=== PATIENT | male | born 1975 | race Caucasian/White ===

== ENCOUNTER 2017-12-07 09:44 | Inpatient (IN) | payer BC ==
[~2017-12-07] VITALS: Ht 170.2 cm; Wt 100.4 kg
[~2017-12-07 09:44] MED LIST: COZAAR100 MG PO; LEVOXYL0.175 MG PO; SYNTHROID 0.0.025 MG PO; SYNTHROID0.125 MG/T PO
[2017-12-28] VITALS (12 sets, daily range): BP systolic 104–144; BP diastolic 56–97; PULSE 69–94; TEMP 98.1–98.3
[2017-12-28] MEDS ORDERED: TIROSINT125 MC1 PO (05:58)
[2017-12-28 06:39] LABS: BASO # 0.1 (0.0-0.2); EOS # 0.2 (0.0-0.7); EOS % 2.3 % (0-4.0); GRAN # 4.9 (1.4-6.5); GRAN % 60.8 % (42.2-75.2); HEMATOCRIT 43.3 % (42.0-52.0); LYMPH # 2.1 (1.2-3.4); LYMPH % 25.8 % (20.0-51.0); MEAN CELL VOLUME 91 fl (80.0-100.0); MEAN CORPUSCULAR HEMOGLOBIN 32 pg (27.0-31.0); MEAN CORPUSCULAR HGB CONC 35 g/dl (33.0-37.0); MEAN PLATELET VOLUME 11.2 fl (7.4-10.4); MONO # 0.8 (0.1-0.6); MONO % 9.7 % (1.7-9.3); PLATELET COUNT 253 K/mm3 (130-400); RED BLOOD COUNT 4.75 M/mm3 (4.20-5.60); REDCELL DISTRIBUTION WIDTH-CV 12.4 % (11.5-14.5)
[2017-12-28 06:49] LABS: ALBUMIN 4.3 gm/dL (3.5-5.0); BILIRUBIN,TOTAL 1.4 mg/dL (0.0-1.0); CALCIUM 8.4 mg/dL (8.4-10.2); CREATININE, serum 0.92 mg/dL (0.66-1.25); POTASSIUM 3.7 mmol/L (3.4-5.0); TOTAL PROTEIN 7.9 gm/dL (6.4-8.2)
[2017-12-29 04:07] VITALS: BP 139/67; PULSE 96; TEMP 98.2
[2017-12-29 07:04] LABS: HEMATOCRIT 31.7 % (42.0-52.0)
[2017-12-29 07:11] LABS: CALCIUM 7.7 mg/dL (8.4-10.2); CREATININE, serum 0.96 mg/dL (0.66-1.25); POTASSIUM 3.8 mmol/L (3.4-5.0)
[2017-12-29 07:16] VITALS: BP 132/56; PULSE 88; TEMP 98.5
[2017-12-29 12:39] VITALS: BP 138/71; PULSE 92; TEMP 97.9
[2017-12-29 16:17] VITALS: BP 124/59; PULSE 100; TEMP 97.8
[2017-12-29 20:03] VITALS: BP 120/61; PULSE 93; TEMP 98.9
[2017-12-30 00:11] VITALS: BP 109/51; PULSE 77; TEMP 98.2
[2017-12-30 03:59] VITALS: BP 119/60; PULSE 93; TEMP 98.4
[2017-12-30 06:19] LABS: HEMATOCRIT 32.9 % (42.0-52.0); HEMOGLOBIN 10.9 g/dl (13.5-18.0)
[2017-12-30 06:56] VITALS: BP 125/70; PULSE 72; TEMP 98
[2017-12-30 12:27] VITALS: BP 143/63; PULSE 73; TEMP 98.2
[2017-12-30 16:20] VITALS: BP 130/69; PULSE 77; TEMP 98.6
[2017-12-30 19:10] VITALS: BP 125/63; PULSE 85; TEMP 98.3
[2017-12-31 00:13] VITALS: BP 120/57; PULSE 78; TEMP 98.2
[2017-12-31 03:42] VITALS: BP 113/54; PULSE 78; TEMP 98.2
[2017-12-31 07:11] VITALS: BP 127/67; PULSE 73; TEMP 98.3
[2017-12-31 12:40] VITALS: BP 144/77; PULSE 86; TEMP 98.8
== END 2017-12-31 14:15 | disposition home or self-care (01) | DRG 331 ==
LOC: SURG 12-28 05:31 → INPTSU 12-28 05:31 → SURG 12-28 07:30
PROVIDERS: Surgery
PROC: 8E0W4CZ Robotic Assisted Procedure of Trunk Region, Percutaneous Endoscopic Approach (ICD-10-PCS; 2017-12-28)
PROC: 0DTN4ZZ Resection of Sigmoid Colon, Percutaneous Endoscopic Approach (ICD-10-PCS; principal; 2017-12-28 07:30)
DX: K57.32 Diverticulitis of large intestine without perforation or abscess without bleeding (principal); I10 Essential (primary) hypertension
CPT/HCPCS: A4314; A9284; J0690; J1100; J1650; J1885; J2250; J2405; J2704; J2710; J7120

== ENCOUNTER 2019-04-12 12:31 | Emergency (ER) | payer BC ==
[~2019-04-12 12:31] MED LIST changes: +TIROSINT125 MC1 PO
[2019-04-12 13:21] VITALS: TEMP 97.8
[2019-04-12] MEDS ORDERED: TUSS PO (15:20)
[2019-04-12 15:34] VITALS: BP 134/54; PULSE 78
== END 2019-04-12 15:28 | disposition home or self-care (01) ==
LOC: COL.ER 12:31
DX: B97.4 Respiratory syncytial virus as the cause of diseases classified elsewhere (principal); E03.9 Hypothyroidism, unspecified; I10 Essential (primary) hypertension